=== PATIENT | male | born 1965 | race Two or more races ===

== ENCOUNTER 2023-08-22 21:53 | Emergency (ER) | payer SELFPAY ==
[2023-08-22 21:55] VITALS: BP 142/74
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
[2023-08-22] MEDS: TYLENOL 650 MG PO (23:37)
[2023-08-22 23:41] VITALS: BP 135/79
== END 2023-08-23 | disposition home or self-care (01) ==
LOC: EMR 21:53
PROVIDERS: EMERGENCY PHYSICIAN Emergency Medicine
DX: S06.0X0A Concussion without loss of consciousness, initial encounter (principal); S40.022A Contusion of left upper arm, initial encounter; S20.212A Contusion of left front wall of thorax, initial encounter; V89.2XXA Person injured in unspecified motor-vehicle accident, traffic, initial encounter
CPT/HCPCS: 99284; 70450; 71100; 73080